=== PATIENT | female | born 1975 | race Caucasian/White ===

== ENCOUNTER 2018-07-03 12:25 | Emergency (ER) | payer OTHER ==
[~2018-07-03] VITALS: Ht 167.6 cm; Wt 84.1 kg
[~2018-07-03 12:25] MED LIST: ALBU8.5H8 IH; POLY10DR22 OP
[2018-07-03] MEDS ORDERED: DEXAMETHASONE 4 MG TABLET PO ONE (16:00)
[2018-07-03 16:16] VITALS: BP 127/84
== END 2018-07-03 16:24 | disposition home or self-care (01) ==
LOC: EMS 12:25
DX: J02.9 Acute pharyngitis, unspecified (principal); R03.0 Elevated blood-pressure reading, without diagnosis of hypertension; J45.909 Unspecified asthma, uncomplicated
CPT/HCPCS: 81025; 87430; 99283; J8540

== ENCOUNTER 2018-07-06 00:30 | Emergency (ER) | payer OTHER ==
[~2018-07-06] VITALS: Ht 162.6 cm; Wt 65.5 kg
[2018-07-06] MEDS ORDERED: IPRATROPIUM BROMIDE 0.5 MG/2.5 ML NEB SOLUTION NEB ONE (04:30)
[2018-07-06] MEDS ORDERED: MethylPREDNISolone SOD SUCC 125 MG/2 ML VIAL IM ONE (04:30)
[2018-07-06] MEDS ORDERED: ALBUTEROL SULFATE 2.5 MG/0.5 ML NEB SOLUTION NEB ONE (04:30)
[2018-07-06 05:15] VITALS: BP 132/70
== END 2018-07-06 05:21 | disposition home or self-care (01) ==
LOC: EMS 00:32
DX: J45.909 Unspecified asthma, uncomplicated (principal)
CPT/HCPCS: 71045; 94640; 96372; 99283; J2930